=== PATIENT | male | born 1955 | race Caucasian/White ===

== ENCOUNTER 2024-10-12 09:36 | Emergency (ER) | payer OTHER, SELFPAY ==
[2024-10-12 09:39] VITALS: BP 148/80; PULSE 72; TEMP 36.5; O2SAT 98; BMI 32.9
--- NOTE | 2024-10-12 09:49 | XR_ITS ---
The [address] [address] Patient Name: ALLYSSA PACHECO MRN: [id number] date: 1955 Sex: M Assigned Patient Location: ER Current Patient Location: ER Accession/Order Number: [id number] Exam Date: 10/12/2024 10:50 Report Date: 10/12/2024 10:53 At the request of: LIOR LEIVA MD Procedure: XR foot LT min 3V XR foot LT min 3V 10/12/2024 10:27 AM SIGNS AND SYMPTOMS: ^Atraumatic pain, possible plantar fasciitis \S.br\ PROTOCOL: Frontal, lateral, and oblique radiographs of the left foot COMPARISON: 10/27/2021 FINDINGS: The bones are in anatomic alignment. There is no evidence of fracture or dislocation. There is mineralization along the plantaris fascia which may relate to chronic plantar fasciitis. Degenerative changes are noted in the tarsometatarsal junctions. XR/XR foot LT min 3V IMPRESSION: No fracture. There is mineralization along the plantaris fascia which may relate to chronic plantar fasciitis. This is unchanged. Impression dictated by: Jose Yu M.D. 10/12/2024 10:53 AM Dictation Location: [place] [address] Electronically authenticated by: [id number] Y Date: 10/12/2024 10:53
--- NOTE | 2024-10-12 09:56 | ED.GENADUL1 ---
HPI HPI - General Adult General Chief complaint: Extremity Injury, Lower Stated complaint: LEFT FOOT PAIN Time Seen by Provider: 10/12/24 09:38 Source: patient Mode of arrival: walk-in Limitations: no limitations History of Present Illness HPI narrative: 69-year-old male presented to the emergency department for left foot pain. He gives no history of trauma and it has been hurting for the last week. He points to the medial aspect at the arch of the foot. His ankle is not hurting. He has had problems with his foot before and has seen podiatry. Contralateral foot does not seem to be hurting today. Related Data Previous Rx's ?Medication ?Instructions ?Recorded acetaminophen 300 mg-codeine 30 mg 1 tab PO Q6H PRN pain 5 days #20 10/12/24 tablet tabs ibuprofen 800 mg tablet 800 mg PO Q8H PRN pain #20 tabs 10/12/24 Allergies Allergy/AdvReac Type Severity Reaction Status Date / Time No Known Drug Allergies Allergy Verified 10/12/24 09:47 Review of Systems ROS Narrative A ten point review of systems is negative except as noted above. PFSH PFSH Social History Little interest or pleasure in doing things: not at all Feeling down, depressed, or hopeless: not at all Exam Narrative Exam Narrative: Nurses note and vital signs reviewed and patient is not hypoxic. General: The patient appears well and in no apparent distress. Patient is resting comfortably on cart. Skin: Warm, dry, no pallor noted. There is no rash noted. Head: Normocephalic, atraumatic Eye: Normal conjunctiva, no drainage Ears, Nose, Mouth, and Throat: oral mucosa is moist. Nares patent. Cardiovascular: Regular Rate and Rhythm Respiratory: Patient is in no distress, no accessory muscle use Back: non-tender GI: Soft and nontender Musculoskeletal: His foot is examined. He has some tenderness along the arch of the foot. There is no bruise or rash. Ankle is nontender. Neurological: A&O, normal speech Psychiatric: Cooperative Constitutional Vital Signs, click to edit/add: Last Vital Signs Temp 97.7 F 10/12/24 09:39 Pulse 72 10/12/24 09:39 Resp 18 10/12/24 09:39 BP 148/80 H 10/12/24 09:39 Pulse Ox 98 10/12/24 09:39 O2 Del Method Room Air 10/12/24 09:39 Course Vital Signs Vital signs: Vital Signs Temperature 97.7 F 10/12/24 09:39 Pulse Rate 72 10/12/24 09:39 Respiratory Rate 18 10/12/24 09:39 Blood Pressure 148/80 H 10/12/24 09:39 Pulse Oximetry 98 10/12/24 09:39 Oxygen Delivery Method Room Air 10/12/24 09:39 Temperature 97.7 F 10/12/24 09:39 Pulse Rate 72 10/12/24 09:39 Respiratory Rate 18 10/12/24 09:39 Blood Pressure 148/80 H 10/12/24 09:39 Pulse Oximetry 98 10/12/24 09:39 Oxygen Delivery Method Room Air 10/12/24 09:39 Medical Decision Making MDM Narrative Medical decision making narrative: X-ray findings are discussed with the patient and 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 He is provided prescriptions for ibuprofen and Tylenol 3. Treatment diagnosis and follow-up were discussed with the patient and his . Differential Diagnosis Differential Diagnosis: Plantar fascial-itis, arthritis, fracture Imaging Data Foot x-ray: Radiologist's impression: ITS Impressions Foot X-Ray 10/12/24 09:49 IMPRESSION: No fracture. There is mineralization along the plantaris fascia which may relate to chronic plantar fasciitis. This is unchanged. Impression dictated by: Jose Yu M.D. 10/12/2024 10:53 AM Dictation Location: [place] [address] Electronically authenticated by: [id number] Y Date: 10/12/2024 10:53 Discharge Plan Discharge Chief Complaint: Extremity Injury, Lower Clinical Impression: Plantar fasciitis Patient Disposition: Home, Self-Care Time of Disposition Decision: 11:01 Condition: Good Mode of Transportation: Private Vehicle Prescriptions / Home Meds: New acetaminophen-codeine 300-30 mg tablet 1 tab PO Q6H PRN (Reason: pain) 5 Days Qty: 20 0RF ibuprofen 800 mg tablet 800 mg PO Q8H PRN (Reason: pain) Qty: 20 0RF Print Language: Algerian Instructions: Plantar Fasciitis (ED), Plantar Fasciitis Exercises (ED) Referrals: Physician,Non-Staff, MD [Primary Care Provider] - 1 week Tapan Montoya DPM [Physician, Podiatry]
== END 2024-10-12 11:07 | disposition home or self-care (01) ==
PROVIDERS: Emergency Provider Emergency Medicine
DX: M72.2 Plantar fascial fibromatosis (principal)
CPT/HCPCS: 73630; 99283